=== PATIENT | female | born 1990 | race Caucasian/White ===

== ENCOUNTER 2023-03-21 17:36 | Emergency (ER) | payer OTHER ==
[~2023-03-21] VITALS: Ht 154.9 cm; Wt 54.4 kg
[2023-03-21 17:51] VITALS: BP_SYST 138; PULSE 67; RESP 18; TEMP 98.3; O2SAT 98
[2023-03-21] MEDS ORDERED: IBUPROFEN 800 MG TABLET PO ONE (19:30)
[2023-03-21 19:47] LABS: BASOPHILS % (AUTO) 0.5 % (0.0-2.0); EOSINOPHILS % (AUTO) 0.7 % (0.0-4.0); HEMATOCRIT 36.5 % (36-48); HEMOGLOBIN 11.8 g/dL (12.0-16.0); LYMPHOCYTES # (AUTO) 2.3 K/uL (1.0-5.5); LYMPHOCYTES % (AUTO) 34.1 % (20.5-51.5); MEAN CORPUSCULAR HEMOGLOBIN 28 pg (27-31); MEAN CORPUSCULAR HGB CONC 32 % (32-36); MEAN CORPUSCULAR VOLUME 88 fL (79.0-98.0); MONOCYTES # (AUTO) 0.7 K/uL (0.0-1.0); MONOCYTES % (AUTO) 9.6 % (1.7-9.3); NEUTROPHILS # (AUTO) 3.8 K/uL (1.8-7.7); NEUTROPHILS % (AUTO) 55.1 % (40.0-70.0); PLATELET COUNT (AUTO) 207 K/uL (130-430); RED BLOOD CELL COUNT(AUTO) 4.15 MIL/uL (4.2-6.2); RED CELL DISTRIBUTION WIDTH 13.8 % (9.0-15.0); WHITE BLOOD COUNT (AUTO) 6.8 K/uL (4.8-10.8)
[2023-03-21 19:53] LABS: SERUM HCG (QUALITATIVE) NEGATIVE (NEGATIVE)
[2023-03-21 19:54] LABS: ANION GAP 9 (5-15); CALCIUM 8.8 mg/dL (8.4-11.0); CARBON DIOXIDE 25 mmol/L (23-29); CHLORIDE 101 mmol/L (98-107); GFR AFRICAN AMERICAN 147 mL/min (>90); GLUCOSE 85 mg/dL (74-106); POTASSIUM 3.3 mmol/L (3.5-5.1); SODIUM SERUM 135 mmol/L (136-145); UREA NITROGEN, BLOOD 13 mg/dL (8-21)
[2023-03-21 19:55] LABS: GFR NON AFRICAN-AMERICAN 122 mL/min (>90)
[2023-03-21 20:01] LABS: ALANINE AMINOTRANSFERASE 18 U/L (12-78); ALBUMIN 3.6 g/dL (3.4-4.8); ASPARTATE AMINOTRANSFERASE 17 U/L (10-37); TOTAL BILIRUBIN 0.7 mg/dL (0.0-1.0)
[2023-03-21] MEDS ORDERED: IBUP-1969 PO (21:13)
[2023-03-21 21:19] VITALS: BP_SYST 135; PULSE 65; RESP 18; TEMP 98.2; O2SAT 98
== END 2023-03-21 21:19 | disposition home or self-care (01) ==
LOC: SED 17:36
DX: M94.0 Chondrocostal junction syndrome [Tietze] (principal); R06.02 Shortness of breath; R07.89 Other chest pain; Z79.899 Other long term (current) drug therapy
CPT/HCPCS: 36415; 80053; 84484; 84703; 85025; 85379; 93005; 99284